=== PATIENT | male | born 1960 | race Caucasian/White ===

== ENCOUNTER 2022-10-17 16:17 | Inpatient (IN) | payer OTHER ==
[2022-10-17 16:53] VITALS: BMI 21.7
[2022-10-17] MEDS ORDERED: LOPERAMIDE HCL 2 MG CAPSULE PO PRN (17:15)
[2022-10-17] MEDS ORDERED: DICYCLOMINE HCL 10 MG CAPSULE PO PRN (17:15)
[2022-10-17] MEDS ORDERED: NALOXONE HCL (KLOXXADO) 8 MG SPRAY NS PRN (17:15)
[2022-10-17] MEDS ORDERED: BISMUTH SUBSALICYLATE 524 MG/30 ML PO PRN (17:15)
[2022-10-17] MEDS ORDERED: MAGNESIUM HYDROX 2400MG/30ML ORAL SUSPENSION 30 ML CUP PO PRN (17:15)
[2022-10-17] MEDS ORDERED: NICOTINE POLACRILEX 2 MG GUM BUC PRN (17:15)
[2022-10-17] MEDS ORDERED: MAG HYDROX/AL HYDROX/SIMETH 30 ML UNIT-DOSE CUP PO PRN (17:15)
[2022-10-17] MEDS ORDERED: ACETAMINOPHEN 325 MG TABLET (FP) PO PRN ×2 (17:15)
[2022-10-17] MEDS ORDERED: IBUPROFEN 600 MG TABLET (FP) PO PRN (17:15)
[2022-10-17] MEDS ORDERED: cloNIDine HCL 0.1 MG TABLET PO PRN (17:15)
[2022-10-17] MEDS ORDERED: IBUPROFEN 400 MG TABLET (FP) PO PRN (17:15)
[2022-10-17] MEDS ORDERED: POLYETHYLENE GLYCOL (HEALTHYLAX) 3350 17 GM PACKET PO PRN (17:15)
[2022-10-17] MEDS ORDERED: methaDONE HCL 10 MG TABLET (FOR DETOX USE ONLY) ONE (17:49)
[2022-10-17] MEDS ORDERED: methaDONE HCL 10 MG TABLET (FOR DETOX USE ONLY) PO ONE (18:00)
[2022-10-17] MEDS: MELATONIN 5 MG TABLETS PO SCH (22:23)
[2022-10-17] MEDS: DOXYCYCLINE HYCLATE 100 MG CAPSULE PO SCH (22:23)
[2022-10-17] MEDS: ATORVASTATIN CA 20 MG TABLET (FP) PO SCH (22:23)
[2022-10-17] MEDS: METHOCARBAMOL 500 MG TABLET PO PRN (22:23)
[2022-10-17] MEDS: MONTELUKAST NA 10 MG TABLET PO SCH (22:23)
[2022-10-17] MEDS: THIAMINE HCL 100 MG TABLET (FP) PO SCH (22:24)
[2022-10-18] MEDS: ALBUTEROL SO4 HFA INHALER IH PRN (02:14)
[2022-10-18] MEDS: METHOCARBAMOL 500 MG TABLET PO PRN (10:14)
[2022-10-18] MEDS: DOXYCYCLINE HYCLATE 100 MG CAPSULE PO SCH ×2 (10:14→17:36)
[2022-10-18] MEDS: PRENATAL VITAMINS W/ FOLIC ACID TABLET (FP) PO SCH (10:14)
[2022-10-18] MEDS: FLUTICASONE/UMECLIDIN/VILANTER(200-62.5-25 TRELEGY ELLIPTA) INAHLER IH SCH (10:15)
[2022-10-18 12:29] LABS: CALCIUM 8.6 mg/dL (8.5-10.1)
[2022-10-18 12:30] LABS: ALBUMIN 3.3 g/dl (3.4-5.0); BLOOD UREA NITROGEN 17.7 mg/dL (7-18)
[2022-10-18 12:33] LABS: CREATININE 0.8 mg/dL (0.55-1.3)
[2022-10-18 12:35] LABS: BILIRUBIN,TOTAL 0.6 mg/dL (0.2-1)
[2022-10-18 12:45] LABS: HEMATOCRIT 46.4 % (35.4-49); HEMOGLOBIN 15.1 GM/dL (11.7-16.9); MCH 32.4 pg (25.7-33.7); MCHC 32.6 g/dl (32.0-35.9); MEAN CELL VOLUME 99.3 fl (80-96); MEAN PLT VOLUME 8.5 fl (7.5-11.1); PLATELET COUNT 240 10^3/uL (134-434); RBC 4.68 M/mm3 (4.00-5.60); RDW 13.7 % (11.9-15.9); WHITE BLOOD COUNT 11.5 K/mm3 (4.0-10.0)
[2022-10-18] MEDS: ATORVASTATIN CA 20 MG TABLET (FP) PO SCH (22:07)
[2022-10-18] MEDS: MELATONIN 5 MG TABLETS PO SCH (22:07)
[2022-10-18] MEDS: MONTELUKAST NA 10 MG TABLET PO SCH (22:07)
[2022-10-18] MEDS: THIAMINE HCL 100 MG TABLET (FP) PO SCH (22:07)
[2022-10-18] MEDS: MIRTAZAPINE 15 MG TABLET (FP) PO SCH (22:07)
[2022-10-19] MEDS: BENZOCAINE/MENTHOL (CHLORASEPTIC ) LOZENGE MM PRN ×2 (05:53→10:14)
[2022-10-19] MEDS ORDERED: methaDONE HCL 10 MG TABLET (FOR DETOX USE ONLY) PO ONE (10:00)
[2022-10-19] MEDS: PRENATAL VITAMINS W/ FOLIC ACID TABLET (FP) PO SCH (10:11)
[2022-10-19] MEDS: FLUTICASONE/UMECLIDIN/VILANTER(200-62.5-25 TRELEGY ELLIPTA) INAHLER IH SCH (10:11)
[2022-10-19] MEDS: ALBUTEROL SO4 HFA INHALER IH PRN (10:11)
[2022-10-19] MEDS: DOXYCYCLINE HYCLATE 100 MG CAPSULE PO SCH (10:12)
[2022-10-19] MEDS: METHOCARBAMOL 500 MG TABLET PO PRN (10:12)
[2022-10-19] MEDS: DOXYCYCLINE HYCLATE 100 MG TABLET PO SCH (17:39)
[2022-10-19] MEDS: guaiFENesin 200 MG/10 ML 10 ML UNIT-DOSE CUPS PO PRN (21:51)
[2022-10-19] MEDS: MONTELUKAST NA 10 MG TABLET PO SCH (22:10)
[2022-10-19] MEDS: MELATONIN 5 MG TABLETS PO SCH (22:10)
[2022-10-19] MEDS: MIRTAZAPINE 15 MG TABLET (FP) PO SCH (22:10)
[2022-10-19] MEDS: ATORVASTATIN CA 20 MG TABLET (FP) PO SCH (22:10)
[2022-10-19] MEDS: THIAMINE HCL 100 MG TABLET (FP) PO SCH (22:10)
[2022-10-20] MEDS: DOXYCYCLINE HYCLATE 100 MG TABLET PO SCH ×2 (07:11→17:20)
[2022-10-20] MEDS: PRENATAL VITAMINS W/ FOLIC ACID TABLET (FP) PO SCH (10:22)
[2022-10-20] MEDS: hydrOXYzine PAMOATE 25 MG CAPSULE (FP) PO PRN ×2 (10:22→17:19)
[2022-10-20] MEDS: FLUTICASONE/UMECLIDIN/VILANTER(200-62.5-25 TRELEGY ELLIPTA) INAHLER IH SCH (10:24)
[2022-10-20] MEDS: guaiFENesin 200 MG/10 ML 10 ML UNIT-DOSE CUPS PO PRN ×2 (10:26→19:03)
[2022-10-20] MEDS: METHOCARBAMOL 500 MG TABLET PO PRN (17:20)
[2022-10-20] MEDS: ATORVASTATIN CA 20 MG TABLET (FP) PO SCH (21:59)
[2022-10-20] MEDS: MIRTAZAPINE 15 MG TABLET (FP) PO SCH (21:59)
[2022-10-20] MEDS: THIAMINE HCL 100 MG TABLET (FP) PO SCH (21:59)
[2022-10-20] MEDS: MONTELUKAST NA 10 MG TABLET PO SCH (21:59)
[2022-10-20] MEDS: MELATONIN 5 MG TABLETS PO PRN (21:59)
[2022-10-21] MEDS: BENZOCAINE/MENTHOL (CHLORASEPTIC ) LOZENGE MM PRN ×2 (01:29→22:06)
[2022-10-21] MEDS: MELATONIN 5 MG TABLETS PO PRN ×2 (01:29→22:04)
[2022-10-21] MEDS: DOXYCYCLINE HYCLATE 100 MG TABLET PO SCH ×2 (07:23→17:25)
[2022-10-21] MEDS ORDERED: methaDONE HCL 10 MG TABLET (FOR DETOX USE ONLY) PO ONE (10:00)
[2022-10-21] MEDS: PRENATAL VITAMINS W/ FOLIC ACID TABLET (FP) PO SCH (10:15)
[2022-10-21] MEDS: FLUTICASONE/UMECLIDIN/VILANTER(200-62.5-25 TRELEGY ELLIPTA) INAHLER IH SCH (10:15)
[2022-10-21] MEDS: METHOCARBAMOL 500 MG TABLET PO PRN (10:15)
[2022-10-21] MEDS: hydrOXYzine PAMOATE 25 MG CAPSULE (FP) PO PRN ×2 (10:16→22:06)
[2022-10-21] MEDS: ONDANSETRON *ODT* 4 MG TABLET SL PRN (13:03)
[2022-10-21] MEDS: guaiFENesin 200 MG/10 ML 10 ML UNIT-DOSE CUPS PO PRN (17:25)
[2022-10-21] MEDS: THIAMINE HCL 100 MG TABLET (FP) PO SCH (22:04)
[2022-10-21] MEDS: MONTELUKAST NA 10 MG TABLET PO SCH (22:04)
[2022-10-21] MEDS: MIRTAZAPINE 15 MG TABLET (FP) PO SCH (22:04)
[2022-10-21] MEDS: ATORVASTATIN CA 20 MG TABLET (FP) PO SCH (22:05)
[2022-10-21] MEDS: ALBUTEROL SO4 HFA INHALER IH PRN (22:05)
[2022-10-22] MEDS: DOXYCYCLINE HYCLATE 100 MG TABLET PO SCH (07:13)
[2022-10-22] MEDS: ONDANSETRON *ODT* 4 MG TABLET SL PRN (07:56)
[2022-10-22] MEDS ORDERED: TRIMETHOBENZAMIDE HCL 200MG/2ML INJ IM ONE (09:30)
[2022-10-22] MEDS ORDERED: NALOXONE (NARCAN) HCL 4 MG/0.1 ML SPRAY NS ONE (09:31)
[2022-10-22 09:32] VITALS: BP 118/79; PULSE 78; RESP 18; TEMP 97.3
[2022-10-22] MEDS: ALBUTEROL SO4 HFA INHALER IH PRN (09:41)
== END 2022-10-22 10:18 | disposition other institution (70) | DRG 773 ==
LOC: YASAS 16:17 → Y6N 18:09
PROVIDERS: ADMIT Allergy & Immunology; ATTEND Surgery
PROC: HZ2ZZZZ Detoxification Services for Substance Abuse Treatment (ICD-10-PCS; principal; 2022-10-17)
DX: F11.23 Opioid dependence with withdrawal (principal); F12.20 Cannabis dependence, uncomplicated; F17.210 Nicotine dependence, cigarettes, uncomplicated; F31.9 Bipolar disorder, unspecified; F19.282 Other psychoactive substance dependence with psychoactive substance-induced sleep disorder; F19.280 Other psychoactive substance dependence with psychoactive substance-induced anxiety disorder; F19.24 Other psychoactive substance dependence with psychoactive substance-induced mood disorder; J44.0 Chronic obstructive pulmonary disease with (acute) lower respiratory infection; R63.4 Abnormal weight loss; Z68.21 Body mass index [BMI] 21.0-21.9, adult; Z59.00 Homelessness unspecified
CPT/HCPCS: 36415; 80053; 85027; 86780; 87811; C9803-CS; Q0162; U0003; U0005